=== PATIENT | female | born 1970 | race Caucasian/White ===

== ENCOUNTER 2022-01-26 17:59 | Emergency (ER) | payer OTHER ==
--- NOTE | 2022-01-26 18:18 | ED Physician Documentation ---
PD HPI CHEST PAIN - Stated complaint Stated Complaint: STROKE SYMPTOM - Chief complaint Chief Complaint: Cardiac - History obtained from History obtained from: Patient - History of Present Illness Timing - onset: How many weeks ago (2) Timing - duration: Weeks (2) Timing - details: Intermittant Quality: Pressure, Aching Location: Substernal, Left chest Radiation: Neck Improved by: Antacids. No: Rest Worsened by: Eating. No: Exertion, Inspiration, Movement Associated symptoms: General Weakness. No: Shortness of air, Palpitations, Cough Similar symptoms before: No diagnosis (had CP episodes 2017 with several ER visits, and subsequent stress test that was concerning but coronary ct by Cards in [place] that was normal. No subsequent CP until the past week or so.) Review of Systems Constitutional: denies: Fever, Chills, Myalgias Nose: denies: Rhinorrhea / runny nose, Congestion Throat: denies: Sore throat Cardiac: reports: Chest pain / pressure. denies: Palpitations, Pedal edema, Calf pain Respiratory: denies: Dyspnea, Cough GI: reports: Abdominal Pain (right upper episodically.) PD PAST MEDICAL HISTORY - Past Medical History Cardiovascular: None (Previous concern for coronary disease with chest pain episodes in 2017. Had stress test that was questionable positive. Had chest CT of the heart in [place] that was normal. No heart cath. No symptoms for the last 5 years.) Respiratory: None Neuro: None Endocrine/Autoimmune: None GI: GERD - Allergies Allergies/Adverse Reactions: Allergies Allergy/AdvReac Type Severity Reaction Status Date / Time meperidine [From Demerol] Allergy Unknown Verified 01/26/22 18:16 naproxen Allergy Unknown Verified 01/26/22 18:17 pentazocine [From Talwin] Allergy Unknown Verified 01/26/22 18:17 prochlorperazine Allergy Unknown Verified 01/26/22 18:17 [From Compazine] PD ED PE NORMAL - Vitals Vital signs reviewed: Yes - General General: Alert and oriented X 3, No acute distress, Well developed/nourished - HEENT HEENT: Moist mucous membranes, Pharynx benign - Neck Neck: Supple, no meningeal sign, No adenopathy - Cardiac Cardiac: RRR, No murmur - Respiratory Respiratory: Clear bilaterally, Other (no chestwall tenderness. ) - Abdomen Abdomen: Soft, Non tender - Derm Derm: Normal color, Warm and dry - Extremities Extremities: No tenderness to palpate, No edema, No calf tenderness / cord - Neuro Neuro: Alert and oriented X 3, No motor deficit, No sensory deficit, Normal speech Results - Vitals Vitals: Vital Signs - 24 hr 01/26/22 01/26/22 01/26/22 18:12 19:15 20:00 Temperature 36.8 C Heart Rate 71 74 71 Respiratory 20 18 14 Rate Blood Pressure 157/93 H 143/83 H 130/71 O2 Saturation 100 100 97 01/26/22 20:51 Temperature Heart Rate 72 Respiratory 16 Rate Blood Pressure 117/73 O2 Saturation 99 Oxygen O2 Source Room air - EKG (time done) 18:09 Rate: Rate (enter#) (67) Rhythm: NSR [place]: Normal Intervals: Normal DC QRS: Normal Ischemia: Normal ST segments. No: ST elevation c/w ischemia, ST depression - Labs Labs: Laboratory Tests 01/26/22 01/26/22 01/26/22 19:05 19:05 19:05 WBC 9.3 RBC 4.94 Hgb 13.7 Hct 41.5 MCV 84.0 MCH 27.7 MCHC 33.0 RDW 15.1 H Plt Count 331 MPV 8.7 Neut # (Auto) 6.4 Lymph # (Auto) 2.2 Long # (Auto) 0.6 Eos # (Auto) 0.1 Baso # (Auto) 0.1 Absolute Nucleated RBC 0.00 Nucleated RBC % 0.0 Sodium 135 Potassium 3.9 Chloride 104 Carbon Dioxide 25 Anion Gap 6.0 BUN 10 Creatinine 0.7 Estimated GFR (MDRD) 87 L Glucose 117 H Calcium 9.1 Total Bilirubin < 0.2 L AST 17 ALT 17 Alkaline Phosphatase 69 Troponin I High Sens B-Natriuretic Peptide 40 Total Protein 7.4 Albumin 4.0 Globulin 3.4 Albumin/Globulin Ratio 1.2 Lipase 27 01/26/22 19:05 WBC RBC Hgb Hct MCV MCH MCHC RDW Plt Count MPV Neut # (Auto) Lymph # (Auto) Long # (Auto) Eos # (Auto) Baso # (Auto) Absolute Nucleated RBC Nucleated RBC % Sodium Potassium Chloride Carbon Dioxide Anion Gap BUN Creatinine Estimated GFR (MDRD) Glucose Calcium Total Bilirubin AST ALT Alkaline Phosphatase Troponin I High Sens 2.7 B-Natriuretic Peptide Total Protein Albumin Globulin Albumin/Globulin Ratio Lipase - Rads (name of study) chest xray Radiology: Prelim report reviewed (no acute), See rad report PD MEDICAL DECISION MAKING - ED course Complexity details: considered differential (Atypical pattern of chest pain which is nonexertional and nonpleuritic. More associated with laying down and in the mornings. Some relieved with antacid. More likely gastritis or esophagitis. We will get basic labs to evaluate for MN/CHF/chest x-ray.), d/w p atient Departure - Departure Disposition: 01 Home, Self Care Clinical Impression: Chest pain Condition: Stable Record reviewed to determine appropriate education?: Yes Instructions: ED Chest Pain Atypical Unkn Cause Comments: Please follow-up with your senior dynamics crm developer and primary care physician Discharge Date/Time: 01/26/22 21:04
--- NOTE | 2022-01-26 18:51 | XRAY Report ---
PROCEDURE: Chest 1 View X-Ray INDICATIONS: Chest Pain TECHNIQUE: One view of the chest was acquired. COMPARISON: None FINDINGS: Surgical changes and devices: None. Lungs and pleura: No pleural effusions or pneumothorax. Lungs are clear. Mediastinum: Mediastinal contours appear normal. Heart size is normal. Bones and chest wall: No suspicious bony lesions. Overlying soft tissues appear unremarkable. IMPRESSION: No evidence acute pulmonary process. Reviewed by: Roberth Peñaloza MD on 01/26/2022 6:49 PM PDT Approved by: Roberth Peñaloza MD on 01/26/2022 6:49 PM PDT Station ID: [id number]
[2022-01-26] MEDS ORDERED: MAG HYDROX/AL HYDROX/SIMETH 30 ML UDC PO STA ×2 (18:54→20:40)
[2022-01-26 19:13] LABS: BASOPHILS # (AUTO) 0.1 10^3/uL (0.0-0.1); BASOPHILS % (AUTO) 0.5 %; EOSINOPHILS # (AUTO) 0.1 10^3/uL (0.0-0.7); EOSINOPHILS % (AUTO) 0.5 %; HCT - HEMATOCRIT 41.5 % (37.0-47.0); HGB - HEMOGLOBIN 13.7 g/dL (12.0-16.0); LYMPHOCYTES # (AUTO) 2.2 10^3/uL (1.5-3.5); LYMPHOCYTES % (AUTO) 23.5 %; MEAN CORPUSCULAR HEMOGLOBIN 27.7 pg (27.0-31.0); MEAN PLATELET VOLUME 8.7 fL (7.9-10.8); MONOCYTES # (AUTO) 0.6 10^3/uL (0.0-1.0); MONOCYTES % (AUTO) 6.5 %; NEUTROPHILS # (AUTO) 6.4 10^3/uL (1.5-6.6); NEUTROPHILS % (AUTO) 68.7 %; PLT - PLATELET COUNT 331 10^3/uL (130-450); RED BLOOD COUNT 4.94 10^6/uL (4.20-5.40); RED CELL DISTRIBUTION WIDTH 15.1 % (12.0-15.0); WHITE BLOOD COUNT 9.3 x10^3/uL (4.8-10.8)
[2022-01-26 19:30] LABS: ALBUMIN/GLOBULIN RATIO 1.2 (1.0-2.2); ALKALINE PHOSPHATASE 69 IU/L (42-121); ALT ALANINE AMINOTRANSFERASE 17 IU/L (10-60); AST ASPARTATE AMINOTRANSFERASE 17 IU/L (10-42); BILIRUBIN,TOTAL < 0.2 mg/dL (0.2-1.0); BUN - BLOOD UREA NITROGEN 10 mg/dL (6-20); CALCIUM 9.1 mg/dL (8.5-10.3); CARBON DIOXIDE - CO2 25 mmol/L (21-32); CHLORIDE 104 mmol/L (101-111); CREATININE 0.7 mg/dL (0.4-1.0); GFR - MDRD 87 (>89); GLUCOSE 117 mg/dL (70-100); LIPASE 27 U/L (22-51); POTASSIUM 3.9 mmol/L (3.5-5.0); SODIUM 135 mmol/L (135-145); TOTAL PROTEIN 7.4 g/dL (6.7-8.2)
[2022-01-26 20:52] VITALS: BP 117/73
--- NOTE | 2022-01-26 20:52 | ED Physician Documentation ---
ED Addendum - Addendum Addendum: 01/26/22 20:52 Patient reassessed, she has found relief with the Mylanta. Troponin negative. EKG reassuring. Patient counseled on dietary and lifestyle modifications to prevent worsening reflux. Medications such as Protonix, Pepcid, Maalox advised as well as dietary modifications. Patient states she will follow-up with her primary and cardiology doctors.
== END 2022-01-26 21:04 | disposition home or self-care (01) ==
LOC: ED 17:59
DX: R07.9 Chest pain, unspecified (principal)
CPT/HCPCS: 36415; 71045; 80053; 83690; 83880; 84484; 85025; 93005; 99284; A9270